=== PATIENT | male | born 1960 | race Caucasian/White ===

== ENCOUNTER 2016-12-27 07:23 | Day surgery (SDC) | payer OTHER ==
[2016-12-25 11:35] VITALS: BMI 27.1
[2016-12-27] MEDS ORDERED: PROPOFOL 20 ML ONE ×2 (07:33)
[2016-12-27 09:03] VITALS: TEMP 98.2
[2016-12-27 09:40] VITALS: BP 106/65; PULSE 66
== END 2016-12-27 09:35 | disposition home or self-care (01) ==
LOC: FASU-ENDO 07:23
PROVIDERS: ATTEND Internal Medicine Gastroenterology
PROC: 0DJD8ZZ Inspection of Lower Intestinal Tract, Via Natural or Artificial Opening Endoscopic (ICD-10-PCS; principal; 2016-12-27 08:33)
DX: Z12.11 Encounter for screening for malignant neoplasm of colon (principal)

== ENCOUNTER 2020-10-21 13:47 | Emergency (ER) | payer OTHER | END 2020-10-21 14:31 | disposition home or self-care (01) | LOC: JVIRT 13:47 | DX: Z20.828 Contact with and (suspected) exposure to other viral communicable diseases (principal) | CPT/HCPCS: C9803; G2012-GT; Q3014-GT; U0003 ==